=== PATIENT | female | born 1950 | race Caucasian/White ===

== ENCOUNTER → 2017-03-16 | Outpatient (CLI) | payer MEDICARE, OTHER ==
[~2017-03-16] MED LIST: HYDR12.53 PO; LOSA25TA5 PO; ROSU10TA PO
== END | disposition home or self-care (01) ==
LOC: CVU 09:03
PROVIDERS: ATTEND Internal Medicine Cardiovascular Disease
DX: I08.2 Rheumatic disorders of both aortic and tricuspid valves (principal); I10 Essential (primary) hypertension; E78.5 Hyperlipidemia, unspecified; Z87.891 Personal history of nicotine dependence
CPT/HCPCS: 93306

== ENCOUNTER → 2017-10-03 | Outpatient (CLI) | payer MEDICARE, OTHER | END | disposition home or self-care (01) | LOC: CFH 07:19 | PROVIDERS: ATTEND Internal Medicine Gastroenterology | DX: Z12.31 Encounter for screening mammogram for malignant neoplasm of breast (principal); K82.4 Cholesterolosis of gallbladder; K76.0 Fatty (change of) liver, not elsewhere classified | CPT/HCPCS: 76700; 77067 ==

== ENCOUNTER 2018-10-03 07:28 | Outpatient (CLI) | payer MEDICARE, OTHER ==
[~2018-10-03 07:28] MED LIST changes: +HYDR12.517 PO; -HYDR12.53 PO; +LOSA25TA25 PO; -LOSA25TA5 PO; -ROSU10TA PO; +ROSU10TA2 PO
== END 2018-10-03 23:59 | disposition home or self-care (01) ==
LOC: CVU 07:28
PROVIDERS: ATTEND Internal Medicine Cardiovascular Disease
DX: I65.21 Occlusion and stenosis of right carotid artery (principal); I10 Essential (primary) hypertension; E78.5 Hyperlipidemia, unspecified; F17.211 Nicotine dependence, cigarettes, in remission
CPT/HCPCS: 93880; 93978

== ENCOUNTER 2021-02-05 14:30 | Inpatient (IN) | payer MEDICARE, OTHER ==
[~2021-02-05] VITALS: Ht 157.5 cm; Wt 64.7 kg
[~2021-02-05 14:30] MED LIST changes: +AMOX1TAB64 PO; +BENZ-17 PO; +CHOL10003 PO; +DOXY100T PO; +FERR324T23 PO; +FLUO20CA23 PO; +FOLI1TAB32 PO; +FURO40TA6 PO; +LOSA50TA14 PO; +METH2.5T PO; +METO25TA35 PO; +OMEP-110 PO; +POLY17PO5 PO; +POTA20TA89 PO; +SUCR1TAB PO
--- NOTE | 2021-02-05 14:53 | NUR ---
PATIENT ARRIVES HYPOTENSIVE WITH DAUGHTER. SHE WAS RELEASED FROM HOSPITAL FOR STAY WITH [facility] ON JANUARY 24. SHE WENT HOME HASN'T BEEN TAKING IRON, AND SHE IS ON OXYGEN AT HOME. PATIENT HASN'T BEEN EATING EITHER. SHE IS WEAK. STARTED IV, BLOOD DRAWN. ON MONITOR, IN BED.
--- NOTE | 2021-02-05 14:58 | NUR ---
PATIENT WAS AT DR SCHERER OFFICE AND HYPOTENSIVE AND SENT BY MD. RONQUILLO ADMITTED HERE FOR [facility]. WENT HOME, NONCOMPLIANT TAKING IRON, AND NOT EATING.
[2021-02-05] MEDS ORDERED: SODIUM CHLORIDE 0.9%, 500ML IVBOLUS ONE (15:00)
[2021-02-05 15:35] LABS: MEAN CORPUSCULAR HEMOGLOBIN 32.7 pg (27.0-34.8); MEAN CORPUSCULAR HGB CONC 32.9 g/dL (32.4-35.8); MEAN PLATELET VOLUME 8.1 fL (7.4-10.4); PLATELET COUNT 426 x10^3/uL (130-400); RED BLOOD COUNT 3.26 x10^6/uL (3.82-5.3); RED CELL DISTRIBUTION WIDTH 17.5 % (9.6-15.2)
--- NOTE | 2021-02-05 15:40 | NUR ---
PATIENT GETTING FLUIDS THEN WILL REASSESS IF SHE CAN PEE
[2021-02-05 15:47] LABS: ALBUMIN 3.1 g/dL (3.4-5.0); ANION GAP 11 mmol/L (5-15); CALCIUM 12.3 mg/dL (8.5-10.1); CHLORIDE 98 mmol/L (98-107)
[2021-02-05 15:50] LABS: ALANINE AMINOTRANSFERASE 52 U/L (12-78); ALKALINE PHOSPHATASE 108 U/L (45-117); BILIRUBIN,TOTAL 0.4 mg/dL (0.2-1.0); CREATININE 2.04 mg/dL (0.55-1.02)
[2021-02-05 16:03] LABS: <PLATELET ESTIMATE> INCREASED; <PLT MORPHOLOGY> NORMAL PLT MORPH; BANDS%(MANUAL) 1 % (0-7); BASOS% (MANUAL) 1 % (0-1); EOS% (MANUAL) 2 % (1-7); LYMPH#(MANUAL) 7.04 x10^3/uL (1-3.4); LYMPHS% (MANUAL) 35 % (22-44); MONOS#(MANUAL) 1.01 x10^3/uL (0.3-2.7); MONOS% (MANUAL) 5 % (2-9); SEG#(MANUAL) 11.26 x10^3/uL (1.8-6.8); SEGS% (MANUAL) 56 % (42-75)
[2021-02-05 16:04] LABS: ANISOCYTOSIS 1+; HYPOCHROMIA 1+
[2021-02-05 16:15] LABS: MICROSCOPIC AUTO
--- NOTE | 2021-02-05 16:51 | NUR ---
erp made aware of vs and lab values consistant with sepsis
--- NOTE | 2021-02-05 17:10 | NUR ---
report from [facility]
--- NOTE | 2021-02-05 17:11 | NUR ---
With assessment patient with no acute complaints. no abd pain/n/v/d ( recovered from recent colitis/cdiff), no dysuria, no cough/sob (recovered from the most part from pna hospitalization). Daughter reports patient has not been eating well since be quite deconditioned from above infections Erp reminded of need for potassium repletion (orders received for 1l ns with 40k) and lactate/abx orders patient look quite well:afebrile/hr 70, 111/67
[2021-02-05] MEDS ORDERED: POTASSIUM CHLORIDE 20 MEQ PACKET ONE (17:51)
[2021-02-05] MEDS ORDERED: CALCIUM CARBONATE 500 MG TAB.CHEW ONE (17:52)
[2021-02-05] MEDS ORDERED: POTASSIUM CHLORIDE 40 MEQ in LACTATED RINGERS 1,000 ML IV SCH (18:00)
[2021-02-05] MEDS ORDERED: POTASSIUM CHLORIDE 20 MEQ PACKET PO ONE (18:00)
[2021-02-05] MEDS ORDERED: CALCIUM CARBONATE 500 MG TAB.CHEW PO PRN (18:00)
--- NOTE | 2021-02-05 18:44 | NUR ---
UP TO RESTROOM WITH STEAD GAIT. NO DIZZINESS OR DIFFICULT AMBULATING
--- NOTE | 2021-02-05 19:42 | NUR ---
ERP MADE AWARE THAT PATIENT HAS HAD 7 EPISODES OF DIARRHEA WHILE BEING HYDRATED (RECENT HX OF CDIFF)
--- NOTE | 2021-02-05 20:11 | NUR ---
ERP MADE AWARE THAT BILLING CHECKER FEELS PATIENT UNSAFE FOR D/C PATIENT NOW FEELING DIZZY, HAS HAD 8 BOUTS OF DIARRHEA FOR BILLING CHECKER (BILLING CHECKER SUSPECTS PATIENT STILL HAS CDIFF). ERP CONSIDERING
[2021-02-05] MEDS ORDERED: ONDANSETRON 2MG/ML, 2ML ONE ×2 (20:56→22:00)
[2021-02-05] MEDS ORDERED: ONDANSETRON 2MG/ML, 2ML IVPush ONE (21:00)
[2021-02-05] MEDS ORDERED: POTASSIUM CHLORIDE 20 MEQ in SODIUM CHLORIDE 0.9% 250 ML IV ONE (21:00)
[2021-02-05] MEDS ORDERED: METRONIDAZOLE PMX 500MG/100ML 100 ML IV ONE (21:00)
[2021-02-05] MEDS ORDERED: SODIUM CHLORIDE 0.9% 1,000ML IVBOLUS ONE (21:00)
[2021-02-05] MEDS ORDERED: METRONIDAZOLE PMX 500MG/100ML 100 ML ONE (21:05)
--- NOTE | 2021-02-05 21:09 | NUR ---
WITH REASSESSMENT PATIENT NOW SUDDENLY NAUSEATED-VOMITING. ERP MADE AWARE LAB AT BEDSIDE FOR BLOOD CULTURES
[2021-02-05 22:39] VITALS: BP 126/69
[2021-02-06] MEDS ORDERED: PHARMACY MAY ADJ FOR RENAL FX MC PRN
[2021-02-06] MEDS ORDERED: MELATONIN 5 MG TABLET PO PRN
[2021-02-06] MEDS ORDERED: morphine SULFATE 10 MG/ML, 1ML IVPush PRN
[2021-02-06] MEDS ORDERED: LABETALOL 5MG/ML, 20ML IVPush PRN
[2021-02-06] MEDS ORDERED: ONDANSETRON 2MG/ML, 2ML IVPush PRN
[2021-02-06] MEDS ORDERED: ACETAMINOPHEN 325 MG TABLET PO PRN
[2021-02-06] MEDS: VANCOMYCIN 50 MG/ML ORAL SUSP PO SCH ×2 (00:46→06:12)
[2021-02-06] MEDS: NS + 20MEQ KCL 1,000 ML IV SCH ×2 (00:46→13:28)
[2021-02-06 00:58] VITALS: BP 128/58
[2021-02-06 02:32] LABS: FREE T4 (FREE THYROXINE) 1.17 ng/dL (0.76-1.46)
[2021-02-06 05:34] LABS: MEAN CORPUSCULAR HEMOGLOBIN 33.5 pg (27.0-34.8); MEAN CORPUSCULAR HGB CONC 33.8 g/dL (32.4-35.8); MEAN PLATELET VOLUME 7.5 fL (7.4-10.4); PLATELET COUNT 302 x10^3/uL (130-400); RED CELL DISTRIBUTION WIDTH 17.1 % (9.6-15.2)
[2021-02-06 05:46] LABS: ANION GAP 6 mmol/L (5-15); CALCIUM 9.9 mg/dL (8.5-10.1); CHLORIDE 110 mmol/L (98-107); CREATININE 1.64 mg/dL (0.55-1.02)
[2021-02-06 06:01] LABS: ANISOCYTOSIS 1+; BAND#(MANUAL) 0.24 x10^3/uL; BANDS%(MANUAL) 2 % (0-7); BASOS#(MANUAL) 0.12 x10^3/uL (0-0.1); BASOS% (MANUAL) 1 % (0-1); EOS% (MANUAL) 5 % (1-7); LYMPH#(MANUAL) 3.57 x10^3/uL (1-3.4); LYMPHS% (MANUAL) 30 % (22-44); MONOS#(MANUAL) 0.83 x10^3/uL (0.3-2.7); MONOS% (MANUAL) 7 % (2-9); SEG#(MANUAL) 6.55 x10^3/uL (1.8-6.8); SEGS% (MANUAL) 55 % (42-75)
[2021-02-06 06:02] LABS: POLYCHROMASIA 1+
[2021-02-06 06:04] LABS: <PLATELET ESTIMATE> ADEQUATE; <PLT MORPHOLOGY> NORMAL PLT MORPH
[2021-02-06 06:15] LABS: CLOSTRIDIUM DIFFICILE ANTIGEN NEGATIVE; CLOSTRIDIUM DIFFICILE TOXIN NEGATIVE (Negative)
[2021-02-06 08:02] VITALS: BP 97/54
[2021-02-06] MEDS: CHOLESTYRAMINE LIGHT 4GM PACKET PO SCH ×3 (12:43→20:22)
[2021-02-06 12:46] VITALS: BP 116/70
[2021-02-06 19:44] VITALS: BP 104/66
[2021-02-07 00:02] VITALS: BP 115/70
[2021-02-07 07:54] VITALS: BP 112/62
[2021-02-07] MEDS: CHOLESTYRAMINE LIGHT 4GM PACKET PO SCH (09:11)
[2021-02-07] MEDS ORDERED: CHOL239. PO (10:49)
[2021-02-07 11:50] LABS: BASOPHILS % (AUTO) 1 % (0-1); EOSINOPHILS % (AUTO) 3 % (1-7); LYMPHOCYTES % (AUTO) 31 % (22-44); MEAN CORPUSCULAR HEMOGLOBIN 33.8 pg (27.0-34.8); MEAN CORPUSCULAR HGB CONC 34.1 g/dL (32.4-35.8); MEAN PLATELET VOLUME 7.7 fL (7.4-10.4); MONOCYTES % (AUTO) 10 % (2-9); NEUTROPHILS % (AUTO) 56 % (42-75); PLATELET COUNT 280 x10^3/uL (130-400); RED BLOOD COUNT 2.54 x10^6/uL (3.82-5.3); RED CELL DISTRIBUTION WIDTH 17.6 % (9.6-15.2)
[2021-02-07 12:03] LABS: ANION GAP 4 mmol/L (5-15); CALCIUM 9.6 mg/dL (8.5-10.1); CHLORIDE 112 mmol/L (98-107); CREATININE 1.44 mg/dL (0.55-1.02)
[2021-02-07] MEDS ORDERED: PHOS250T PO (12:17)
[2021-02-07] MEDS ORDERED: MAGN400T50 PO (12:18)
[2021-02-07] MEDS ORDERED: POTASSIUM CHLORIDE 20 MEQ TAB.ER.PRT PO ONE (12:30)
[2021-02-07] MEDS ORDERED: MAGNESIUM OXIDE 400 MG TABLET PO SCH (12:30)
[2021-02-07] MEDS ORDERED: K-PHOS NEUTRAL 250MG TAB PO SCH (12:30)
[2021-02-07 13:34] VITALS: BP 123/77
[2021-02-07] MEDS ORDERED: CALCIUM CARBONATE 500 MG TAB.CHEW PO ONE (14:30)
== END 2021-02-07 16:27 | disposition home or self-care (01) | DRG 871 ==
LOC: ED 14:59 → EDIP 21:01 → 3N 22:30
PROVIDERS: ADMIT Family Medicine; ATTEND Hospitalist
PROC: 0T9B70Z Drainage of Bladder with Drainage Device, Via Natural or Artificial Opening (ICD-10-PCS; principal; 2021-02-05)
DX: A41.9 Sepsis, unspecified organism (principal); N17.0 Acute kidney failure with tubular necrosis; E44.0 Moderate protein-calorie malnutrition; E87.1 Hypo-osmolality and hyponatremia; I50.32 Chronic diastolic (congestive) heart failure; J96.10 Chronic respiratory failure, unspecified whether with hypoxia or hypercapnia; D50.9 Iron deficiency anemia, unspecified; E78.5 Hyperlipidemia, unspecified; E83.52 Hypercalcemia; K21.9 Gastro-esophageal reflux disease without esophagitis; R19.7 Diarrhea, unspecified; E86.0 Dehydration; E86.1 Hypovolemia; E87.6 Hypokalemia; I11.0 Hypertensive heart disease with heart failure; Z79.899 Other long term (current) drug therapy; L40.9 Psoriasis, unspecified; Z87.891 Personal history of nicotine dependence; Z82.49 Family history of ischemic heart disease and other diseases of the circulatory system; Z91.012 Allergy to eggs; Z68.26 Body mass index [BMI] 26.0-26.9, adult
CPT/HCPCS: 36415; 71045; 74018; 80048; 80053; 81001; 83735; 84100; 84145; 84439; 84443; 85025; 87040; 87077; 87086; 87186; 87324; 89055; 93005; 96374; 96375; 99285; G0378; J2405; J3370; J3480; J7030; J7040; J7120